=== PATIENT | male | born 1970 | race Caucasian/White ===

== ENCOUNTER 2022-11-09 10:21 | Day surgery (SDC) | payer BC ==
[~2022-11-09 10:21] MED LIST: Lactated Ringers 1,000 ML IV SCH
[2022-11-09] MEDS ORDERED: Propofol 200 MG/20 ML SDV ONE (10:24)
[2022-11-09] MEDS ORDERED: Lactated Ringers 1,000 ML IV SCH (13:15)
== END 2022-11-09 13:44 | disposition home or self-care (01) ==
LOC: MW.SDS 10:21
PROVIDERS: ATTEND Surgery
DX: Z12.11 Encounter for screening for malignant neoplasm of colon (principal); D12.2 Benign neoplasm of ascending colon; F17.200 Nicotine dependence, unspecified, uncomplicated; J45.909 Unspecified asthma, uncomplicated; E78.5 Hyperlipidemia, unspecified; Z86.010 Personal history of colon polyps; Z80.0 Family history of malignant neoplasm of digestive organs; Z88.0 Allergy status to penicillin; Z88.6 Allergy status to analgesic agent; Z79.899 Other long term (current) drug therapy; Z98.890 Other specified postprocedural states
CPT/HCPCS: 45380; J2704; J7120; 00811